=== PATIENT | male | born 1975 | race Hispanic/Latino ===

== ENCOUNTER 2018-01-08 08:53 | Emergency (ER) | payer SELFPAY ==
[2018-01-08] MEDS ORDERED: BENADRY2 EX (09:11)
[2018-01-08] MEDS ORDERED: CEPHALEXIN500 M1 PO (09:11)
[2018-01-08 09:15] VITALS: BP 120/63
== END 2018-01-08 09:16 | disposition home or self-care (01) | DRG 918 ==
LOC: ED 08:53
DX: T65.891A Toxic effect of other specified substances, accidental (unintentional), initial encounter (principal); L23.5 Allergic contact dermatitis due to other chemical products; L02.222 Furuncle of back [any part, except buttock and flank]

== ENCOUNTER → 2018-07-16 | Outpatient (REF) | payer SELFPAY ==
[~2018-07-16] MED LIST: BENADRY2 EX; CEPHALEXIN500 M1 PO
== END | disposition home or self-care (01) | DRG 552 ==
LOC: DI 08:39
PROVIDERS: ATTEND Physician Assistant Medical
DX: M54.6 Pain in thoracic spine (principal)

== ENCOUNTER 2021-01-29 20:07 | Observation (INO) | payer SELFPAY ==
[~2021-01-29] VITALS: Ht 170.2 cm; Wt 79.0 kg
--- NOTE | 2021-01-29 21:20 | NUR ---
PT RO ROOM AMBULATORY WITH STEADY GAIT
--- NOTE | 2021-01-29 22:20 | NUR ---
PT SITTING IN RM AWAITING RESULTS. CALL LIGHT WITHIN REACH.
[2021-01-29 22:42] LABS: HEMATOCRIT 51.1 % (39.0-50.0); HEMOGLOBIN 17.2 g/dl (14.0-18.0); IMMATURE GRANULOCYTES 0.6 % (0.0-5.0); MEAN CORPUSCULAR HGB CONC 33.7 g/dL CAL (32.0-36.0); NEUT# 15.99 thou/uL (1.82-7.42); RED BLOOD COUNT 5.74 mill/uL (4.70-6.10); RED CELL DISTRI WIDTH 12.8 % (11.5-15.5)
[2021-01-29 22:58] LABS: ALBUMIN 5.7 g/dL (3.2-5.0); BILIRUBIN, TOTAL 0.6 mg/dL (0.0-1.4); CREATININE 4.1 mg/dL (0.7-1.3)
[2021-01-29 23:07] LABS: POTASSIUM 5.2 mmol/l (3.5-5.1)
--- NOTE | 2021-01-29 23:20 | NUR ---
PT SITTING IN RM AWAITING RESULTS. CALL LIGHT WITHIN REACH AND PT HAS NO NEEDS OR CONCERNS.
--- NOTE | 2021-01-30 00:20 | NUR ---
PT SITTING IN RM AWAITING RESULTS. CALL LIGHT WITHIN REACH AND PT HAS NO NEEDS OR CONCERNS.
--- NOTE | 2021-01-30 01:09 | NUR ---
PT RESTING IN BED AWAITING RM ASSIGNMENT FOR ADMISSION AT THIS TIME. CALL LIGHT WITHIN REACH AND PT HAS NO NEEDS OR CONCERNS AT THIS TIME.
--- NOTE | 2021-01-30 02:09 | NUR ---
PT MOVED TO ER BED 10 FOR HIGHER LEVEL OF CARE BED AT THIS TIME AND REPORT GIVEN TO LAUREN MILLIGAN. CARE RELINQUISHED AT THIS TIME.
[2021-01-30 02:30] VITALS: BP 118/71
--- NOTE | 2021-01-30 06:13 | NUR ---
PT APPEARS TO BE SLEEPING COMFORTABLY. CALL CARMEN WITHIN REACH.
[2021-01-30 07:15] VITALS: BP 133/82
[2021-01-30 08:02] LABS: IMMATURE GRANULOCYTES 0.4 % (0.0-5.0); MEAN CELL VOLUME 90.8 fL CALC (80.0-100.0); MEAN CORPUSCULAR HGB 30.1 pG CALC (26.0-32.0); MEAN CORPUSCULAR HGB CONC 33.1 g/dL CAL (32.0-36.0); NEUT# 10.84 thou/uL (1.82-7.42); RED BLOOD COUNT 4.59 mill/uL (4.70-6.10)
[2021-01-30 08:05] LABS: HEMATOCRIT 41.7 % (39.0-50.0); HEMOGLOBIN 13.8 g/dl (14.0-18.0)
--- NOTE | 2021-01-30 08:08 | NUR ---
PATIENT LAYING IN BED AT THIS TIME IN ED OVERFLOW. PATIENT DENNIES ANY PAIN AT THIS TIME. 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 CALL LIGHT AND PERSONAL ITEMS WITHIN REACH. SPO2 IS 99% ON ROOM AIR. LUNGS SOUNDS CLEAR.
[2021-01-30 08:58] LABS: BILIRUBIN, TOTAL 0.6 mg/dL (0.0-1.4); POTASSIUM 4.2 mmol/l (3.5-5.1)
[2021-01-30 08:59] LABS: ALBUMIN 4.2 g/dL (3.2-5.0); CREATININE 1.8 mg/dL (0.7-1.3); TOTAL PROTEIN 7.2 g/dL (6.3-8.2)
[2021-01-30] MEDS ORDERED: ZOFRAN4 MG/TAB PO (11:10)
[2021-01-30 12:17] VITALS: BP 127/74
--- NOTE | 2021-01-30 12:18 | NUR ---
PATIENT RESTING IN BED AT THIS TIME DENIES ANY NEEDS [facility] MONITORED BY ED. PATIENT HAS BEEN D/C AND VERBALIZES D/C INSTRUCTIONS.
--- NOTE | 2021-01-30 13:15 | NUR ---
4Discharge instructions given. Patient verbalizes understanding of same. Discharged in stable condition via Wheelchair to Home with *Other. All belongings sent with pt.
[2021-01-30 13:20] LABS: URINE BILIRUBIN - DIPSTICK NEGATIVE (NEGATIVE); URINE BLOOD DIPSTICK NEGATIVE (NEGATIVE); URINE COLOR YELLOW; URINE GLUCOSE - DIPSTICK NEGATIVE (NEGATIVE); URINE KETONE NEGATIVE (NEGATIVE); URINE LEUK ESTERASE NEGATIVE (NEGATIVE); URINE PROTEIN - DIPSTICK NEGATIVE (NEG-TRACE); URINE UROBILINOGEN - DIPSTICK 0.2 E.U./dL (0.2)
[2021-01-30 13:26] LABS: URINE NITRITE - DIPSTICK NEGATIVE (Negative)
== END 2021-01-30 13:15 | disposition home or self-care (01) | DRG 684 ==
LOC: ED 20:07 → ED-I 01-30 00:20 → ED 01-30 00:45 → ED-I 01-30 00:46
PROVIDERS: ADMIT Hospitalist; ATTEND Hospitalist
DX: N17.9 Acute kidney failure, unspecified (principal); E86.0 Dehydration; E87.5 Hyperkalemia; D72.829 Elevated white blood cell count, unspecified; Z20.822 Contact with and (suspected) exposure to COVID-19; X30.XXXA Exposure to excessive natural heat, initial encounter; Y93.89 Activity, other specified; Y99.0 Civilian activity done for income or pay

== ENCOUNTER 2022-01-03 20:54 | Emergency (ER) | payer SELFPAY ==
[~2022-01-03] VITALS: Ht 170.2 cm; Wt 82.0 kg
[~2022-01-03 20:54] MED LIST changes: +ZOFRAN4 MG/TAB PO
[2022-01-03 21:24] VITALS: BP 130/101
[2022-01-03 21:31] VITALS: BP 132/78
[2022-01-03 21:45] VITALS: BP 127/80
[2022-01-03 22:01] VITALS: BP 140/67
[2022-01-03 22:16] VITALS: BP 124/65
[2022-01-03] MEDS ORDERED: FLOXIN OTIC0.3 % AD (22:17)
[2022-01-03] MEDS ORDERED: ULTRAM50 M1 PO (22:17)
[2022-01-03] MEDS ORDERED: AMOXICILLIN875 MG PO (22:17)
[2022-01-03 22:30] VITALS: BP 126/80
== END 2022-01-03 22:38 | disposition home or self-care (01) | DRG 153 ==
LOC: ED 20:54
DX: H66.91 Otitis media, unspecified, right ear (principal)